=== PATIENT | female | born 1950 | race Caucasian/White ===

== ENCOUNTER 2017-07-13 06:01 | Day surgery (SDC) | payer OTHER ==
[2017-07-13] MEDS ORDERED: LIDOCAINE 1% 2 ML INJ ID PRN (07:05)
[2017-07-13] MEDS ORDERED: LR 1,000 ML IV ONE (07:05)
[2017-07-13 07:39] VITALS: PULSE 85
--- NOTE | 2017-07-13 08:02 | PDGENHP ---
History & Physical Chief Complaint: Screening colonoscopy Relevant Physical Exam: GEN: NAD. Cardiac: RRR. Abd: Soft, nt, nd. Lungs: CTA B
--- NOTE | 2017-07-13 08:08 | PDANEPAE ---
ANE Past Medical History - Cardiovascular History Hx Hypertension: Yes Hx Arrhythmias: No Hx Chest Pain: No Hx Coronary Artery / Peripheral Vascular Disease: No Hx CHF / Valvular Disease: No Hx Palpitations: No - Pulmonary History Hx COPD: No Hx Asthma/Reactive Airway Disease: No Hx Recent Upper Respiratory Infection: No Hx Oxygen in Use at Home: No Hx Sleep Apnea: No Sleep Apnea Screening Result - Last Documented: Positive - Neurologic History Hx Cerebrovascular Accident: No Hx Seizures: No Hx Dementia: No - Endocrine History Hx Diabetes: Yes Hypothyroid: Yes - Renal History Hx Renal Disorders: No - Liver History Hx Hepatic Disorders: No - Neurological & Psychiatric Hx Hx Neurological and Psychiatric Disorders: No - Cancer History Hx Cancer: No - Congenital Disorder History Hx Congenital Disorders: No - GI History Hx Gastrointestinal Disorders: Yes Gastrointestinal History Comment: intermittent indigestion - Other Health History Other Health History: bruises easily - Chronic Pain History Chronic Pain: Yes (back issues) - Surgical History Prior Surgeries: none ANE Review of Systems Review of Systems: - Exercise capacity METS (RN): 4 METS ANE Patient History - Allergies Allergies/Adverse Reactions: No Known Allergies Allergy (Verified 07/06/17 11:54) - Home Medications Home Medications: Hydrochlorothiazide 07/06/17 [Last Taken 07/12/17] Lantus Solostar 07/06/17 [Last Taken 07/12/17] Levothyroxine 07/06/17 [Last Taken 07/12/17] Lisinopril 07/06/17 [Last Taken 07/12/17] Metformin HCl 07/06/17 [Last Taken 07/12/17] Simvastatin 07/06/17 [Last Taken 07/12/17] Victoza 3-Desean 07/06/17 [Last Taken 07/12/17] - NPO status NPO Since - Liquids (Date): 07/12/17 NPO Since - Liquids (Time): 22:30 NPO Since - Solids (Date): 07/12/17 NPO Since - Solids (Time): 09:00 - Smoking Hx Smoking Status: Former smoker - Family Anes Hx Family Hx Anesthesia Complications: none ANE Labs/Vital Signs - Vital Signs Blood Pressure: 126/63 Heart Rate: 85 Respiratory Rate: 16 O2 Sat (%): 95 Height: 167.64 cm Weight: 130.181 kg ANE Physical Exam - Airway Mallampati Score: Class 1 - ASA Status ASA Status: III ANE Anesthesia Plan Total IV Anesthesia: Yes
[2017-07-13] MEDS ORDERED: PROPOFOL 200 MG/20 ML VIAL ONE (08:10)
[2017-07-13] MEDS ORDERED: fentaNYL 100 MCG/2 ML INJ IVP PRN (08:48)
[2017-07-13] MEDS ORDERED: NALOXONE HCL 0.4 MG/ML INJ IVP PRN (08:48)
[2017-07-13] MEDS ORDERED: ONDANSETRON 4 MG/2 ML VIAL IVP PRN (08:48)
[2017-07-13] MEDS ORDERED: LR 500 ML IV PRN (08:48)
--- NOTE | 2017-07-13 08:49 | POSTANESTH ---
Post Anesthetic Evaluation Cardiovascular Status: Similar to Pre-Op Cond Respiratory Status: Normal, Stable Level of Consciousness/Mental Status: Can Participate in Eval Pain Control: Adequate, Prn Tx Ordered Nausea/Vomiting Control: Adequate, Prn Tx Ordered Complications Possibly Related to Anesthesia: None Noted
[2017-07-13 09:44] VITALS: RESP 16
[2017-07-13 10:16] VITALS: BP 129/87; TEMP 97.5; O2SAT 95
--- NOTE | 2017-07-13 10:32 | GIREPORT ---
[facility] - Endoscopy Department Patient Name: Ayah Sánchez Procedure Date: 07/13/2017 7:59 AM Patient Type: Outpatient Attending MD/ ER Physician: Tobias Sandoval MD Procedure: Colonoscopy Indications: Screening for colorectal malignant neoplasm. This is her first screenin g colonoscopy. Providers: Tobias Sandoval MD Medicines: Monitored Anesthesia Care Complications: No immediate complications. Description of Procedure: After obtaining informed consent, the scope was passed under direct vis ion. Throughout the procedure, the patient's blood pressure, pulse, and oxyg en saturations were monitored continuously. The Colonoscope with irrigatio n channel was introduced through the anus and advanced to the terminal il eum, with identification of the appendiceal orifice and IC valve. The colono scopy was performed without difficulty. The patient tolerated the procedure w ell. The quality of the bowel preparation was good. Findings: The perianal and digital rectal examinations were normal. The terminal ileum appeared normal. A 8 mm polyp was found in the ascending colon. The polyp was sessile. T he polyp was removed with a hot snare. Resection and retrieval were comple te. Verification of patient identification for the specimen was done by the physician and nurse using the patient's name and date. Estimated blood loss was minimal. A 2 mm polyp was found in the ascending colon. The polyp was sessile. T he polyp was removed with a cold biopsy forceps. Resection and retrieval w ere complete. Verification of patient identification for the specimen was d one by the physician and nurse using the patient's name and date. Estimated blood loss was minimal. A 12 mm polyp was found in the sigmoid colon. The polyp was pedunculate d. The polyp was removed with a 1:100,000 epinephrine/saline dilutoin for the purpose of endoscopic mucosal resection using a hot snare. Resection an d retrieval were complete. To prevent bleeding post-intervention, one hemostatic clip was successfully placed over the defect. There was no bleeding at the end of the procedure. Multiple medium-mouthed diverticula were found in the sigmoid colon and descending colon. Internal hemorrhoids were found during retroflexion. The hemorrhoids we re Grade I (internal hemorrhoids that do not prolapse). No additional abnormalities were found on retroflexion. Estimated Blood Loss: Estimated blood loss: none. Post Op Diagnosis: - The examined portion of the ileum was normal. - One 8 mm polyp in the ascending colon, removed with a hot snare. Rese cted and retrieved. - One 2 mm polyp in the ascending colon, removed with a cold biopsy for ceps. Resected and retrieved. - One 12 mm polyp in the sigmoid colon, removed using endoscopic mucosa l resection. Resected and retrieved. Clip was placed. - Diverticulosis in the sigmoid colon and in the descending colon. - Internal hemorrhoids. Recommendation: - Discharge patient to home (with escort). - High fiber diet. - Continue present medications. - Repeat colonoscopy in 3 years for surveillance if the sigmoid colon p olyp is found to be adenomatous. - Await pathology results. Results are available within 10 days. - Thank you for allowing me to participate in the care of your patient. Attending Participation: I personally performed the entire procedure. Tobias Sandoval MD Tobias Sandoval MD 07/13/2017 10:32:23 AM This report has been signed electronicallyTobias Sandoval MD Number of Addenda: 0 Note Initiated On: 07/13/2017 7:59 AM Total Procedure Duration Time 0 hours 24 minutes 36 seconds [email or web address]
== END 2017-07-13 10:13 | disposition home or self-care (01) ==
LOC: FSGY 06:01
PROVIDERS: ATTEND Internal Medicine Gastroenterology
PROC: 3E0H8TZ Introduction of Destructive Agent into Lower GI, Via Natural or Artificial Opening Endoscopic (ICD-10-PCS; principal; 2017-07-13 08:00)
PROC: 0DBN8ZX Excision of Sigmoid Colon, Via Natural or Artificial Opening Endoscopic, Diagnostic (ICD-10-PCS; principal; 2017-07-13 08:00)
PROC: 0DBK8ZX Excision of Ascending Colon, Via Natural or Artificial Opening Endoscopic, Diagnostic (ICD-10-PCS; principal; 2017-07-13 08:00)
DX: Z12.11 Encounter for screening for malignant neoplasm of colon (principal); D12.2 Benign neoplasm of ascending colon; D12.5 Benign neoplasm of sigmoid colon; K64.9 Unspecified hemorrhoids; E11.9 Type 2 diabetes mellitus without complications; I10 Essential (primary) hypertension; E66.9 Obesity, unspecified; Z68.42 Body mass index [BMI] 45.0-49.9, adult; Z83.71 Family history of colonic polyps
CPT/HCPCS: J0171; J2704